=== PATIENT | male | born 1945 | race Caucasian/White ===

== ENCOUNTER 2016-09-20 10:15 | Outpatient (CLI) ==
[2012-09-05 11:32] VITALS: TEMP 97.6; BMI 26.6
== END 2016-09-20 10:16 | disposition home or self-care (01) ==
LOC: AMBL 10:15
PROVIDERS: ATTEND Internal Medicine
DX: E16.2 Hypoglycemia, unspecified (principal)

== ENCOUNTER 2016-09-28 16:21 | Outpatient (CLI) ==
[2012-09-05 11:32] VITALS: TEMP 97.6; BMI 26.6
== END 2016-09-28 16:22 | disposition home or self-care (01) ==
LOC: NONPT 16:21
PROVIDERS: ATTEND Family Medicine
DX: S71.102A Unspecified open wound, left thigh, initial encounter (principal); S81.801A Unspecified open wound, right lower leg, initial encounter; S81.802A Unspecified open wound, left lower leg, initial encounter
CPT/HCPCS: 87070; 87186

== ENCOUNTER 2016-10-12 11:45 | Outpatient (CLI) ==
[2012-09-05 11:32] VITALS: TEMP 97.6; BMI 26.6
== END 2016-10-12 11:46 | disposition home or self-care (01) ==
LOC: NONPT 11:45
PROVIDERS: ATTEND Family Medicine
DX: S81.801A Unspecified open wound, right lower leg, initial encounter (principal); S71.102A Unspecified open wound, left thigh, initial encounter; S81.802A Unspecified open wound, left lower leg, initial encounter
CPT/HCPCS: 87070; 87186

== ENCOUNTER 2016-10-25 12:56 | Outpatient (CLI) ==
[2012-09-05 11:32] VITALS: TEMP 97.6; BMI 26.6
== END 2016-10-25 12:57 | disposition home or self-care (01) ==
LOC: NONPT 12:56
PROVIDERS: ATTEND Family Medicine
DX: S81.802A Unspecified open wound, left lower leg, initial encounter (principal); S71.102A Unspecified open wound, left thigh, initial encounter; S81.801A Unspecified open wound, right lower leg, initial encounter
CPT/HCPCS: 87070

== ENCOUNTER 2016-12-01 18:41 | Outpatient (CLI) ==
[2012-09-05 11:32] VITALS: TEMP 97.6; BMI 26.6
== END 2016-12-01 18:42 | disposition home or self-care (01) ==
LOC: AMBL 18:41
PROVIDERS: ATTEND Internal Medicine Geriatric Medicine
DX: E11.649 Type 2 diabetes mellitus with hypoglycemia without coma (principal); R40.4 Transient alteration of awareness; R06.9 Unspecified abnormalities of breathing

== ENCOUNTER 2016-12-25 09:04 | Outpatient (CLI) ==
[2012-09-05 11:32] VITALS: TEMP 97.6; BMI 26.6
== END 2016-12-25 09:05 | disposition home or self-care (01) ==
LOC: AMBL 09:04
PROVIDERS: ATTEND Internal Medicine
DX: E11.649 Type 2 diabetes mellitus with hypoglycemia without coma (principal); R41.0 Disorientation, unspecified